=== PATIENT | female | born 2000 | race Two or more races ===

== ENCOUNTER 2021-05-04 09:45 | Emergency (ER) | payer OTHER, BC ==
[~2021-05-04] VITALS: Ht 180.3 cm; Wt 59.0 kg
[2021-05-04 13:17] VITALS: BP 107/72
== END 2021-05-04 13:18 | disposition home or self-care (01) ==
LOC: ER 10:58
DX: M25.531 Pain in right wrist (principal); S80.812A Abrasion, left lower leg, initial encounter; V43.52XA Car driver injured in collision with other type car in traffic accident, initial encounter; Y92.488 Other paved roadways as the place of occurrence of the external cause
CPT/HCPCS: 99284